=== PATIENT | male | born 1985 | race Hispanic/Latino ===

== ENCOUNTER 2017-12-23 11:12 | Inpatient (IN) | payer OTHER ==
[~2017-12-23] VITALS: Ht 175.3 cm; Wt 181.2 kg
[2017-12-23 11:34] LABS: BASOPHIL (%) 0.2 % (0-1); EOSINOPHIL (%) 0.9 % (0-5); EOSINOPHIL COUNT 0.2 K/uL (0-0.3); HEMATOCRIT 45.3 % (38.0-50.0); HEMOGLOBIN 16.3 G/DL (12.5-16.6); IMMATURE GRANULOCYTE (%) 1.2 % (0.0-0.7); LYMPHOCYTE (%) 13.3 % (15-42); LYMPHOCYTE COUNT 2.3 K/uL (1.0-2.8); MCH 31.7 PG (29.0-34.0); MCV 88.1 FL (86-99); MONOCYTE (%) 6.4 % (3-12); MONOCYTE COUNT 1.1 K/uL (0-0.8); NEUTROPHIL COUNT 13.7 K/uL (1.8-6.4); PLATELET COUNT 253 K/uL (156-360); RBC DIS.WIDTH-CV 12.8 % (11.8-14.6); RBC DIS.WIDTH-SD 41.7 % (39-53); RED BLOOD COUNT 5.14 M/uL (4.00-5.50); WHITE BLOOD COUNT 17.6 K/uL (4.1-10.2)
[2017-12-23 11:40] LABS: AMYLASE 53 IU/L (1-118); CHLORIDE 106 mEq/L (99-109); POTASSIUM 3.4 mEq/L (3.7-5.4); SODIUM 141 mEq/L (136-147)
[2017-12-23 11:42] LABS: GLUCOSE 125 mg/dL (70-99)
[2017-12-23 11:45] LABS: SERUM ETHYL ALCOHOL < 10 mg/dL
[2017-12-23 11:46] LABS: CREATININE 0.9 mg/dL (0.6-1.3); GFR ESTIMATE (CALCULATED) > 59 mL/min/ (58.99-99999)
[2017-12-23 11:47] LABS: UREA NITROGEN (BUN) 17 mg/dL (9-23)
[2017-12-23 11:49] LABS: LIPASE 16 U/L (1.0-51.0)
[2017-12-23 13:30] LABS: APPEARANCE CLEAR ((CLEAR)); BILIRUBIN NEGATIVE; BLOOD NEGATIVE; COLOR YELLOW ((YELLOW)); GLUCOSE (STRIP) NEGATIVE; KETONES NEGATIVE; LEUKOCYTES NEGATIVE; NITRITE NEGATIVE; PROTEIN (STRIP) NEGATIVE; SPECIFIC GRAVITY 1.032 (1.000-1.030); UCUL ADDED? NO; UROBILINOGEN 0.2 MG/DL (0.2-1.0)
[2017-12-23 13:52] LABS: AMPHETAMINE NEGATIVE (500 ng/mL); BARBITURATES NEGATIVE (200 ng/mL); BENZODIAZEPINES NEGATIVE (150 ng/mL); BUPRENORPHINE NEGATIVE (10 ng/mL); COCAINE NEGATIVE (150 ng/mL); METHADONE NEGATIVE (200 ng/mL); METHAMPHETAMINE NEGATIVE (500 ng/mL); OPIATES (MORPHINE) PRESUMPTIVE POSITIVE (100 ng/mL); OXYCODONE NEGATIVE (100 ng/mL); PHENCYCLIDINE NEGATIVE (25 ng/mL); PROPOXYPHENE NEGATIVE (300 ng/mL); THC CANNABINOIDS NEGATIVE (50 ng/mL); TRICYCLIC ANTIDEPRESSANTS NEGATIVE (300 ng/mL)
[2017-12-23 18:10] VITALS: BP 145/76
[2017-12-23 19:34] VITALS: BP 137/76
[2017-12-23 23:51] VITALS: BP 120/61
[2017-12-24 04:07] VITALS: BP 123/64
[2017-12-24 08:03] VITALS: BP 123/63
[2017-12-24 16:34] VITALS: BP 122/68
[2017-12-24 20:08] VITALS: BP 131/68
[2017-12-24 23:28] VITALS: BP 129/67
[2017-12-25 03:47] VITALS: BP 126/58
[2017-12-25 06:35] LABS: HEMATOCRIT 34.6 % (38.0-50.0); MCV 89.9 FL (86-99)
[2017-12-25 06:59] LABS: CHLORIDE 101 MEQ/L (99-109); CREATININE 0.9 MG/DL (0.6-1.3); GFR ESTIMATE (CALCULATED) > 59 mL/min/ (58.99-99999); GLUCOSE 126 mg/dL (70-99); SODIUM 137 MEQ/L (136-147); UREA NITROGEN (BUN) 16 mg/dL (9-23)
[2017-12-25 07:00] LABS: POTASSIUM 4.2 MEQ/L (3.7-5.4)
[2017-12-25 07:16] VITALS: BP 124/73
[2017-12-25 16:00] VITALS: BP 131/72
[2017-12-26 02:03] VITALS: BP 110/78
[2017-12-26 06:22] LABS: HEMATOCRIT 33.7 % (38.0-50.0); HEMOGLOBIN 11.5 G/DL (12.5-16.6); MCV 89.9 FL (86-99)
[2017-12-26 07:54] VITALS: BP 119/66
[2017-12-26 16:40] VITALS: BP 125/68
[2017-12-26 23:20] VITALS: BP 118/58
[2017-12-27 07:29] VITALS: BP 132/81
[2017-12-27] MEDS ORDERED: OXYCODONE HCL5 MG PO (08:31)
[2017-12-27 15:08] VITALS: BP 127/71
[2017-12-27] MEDS ORDERED: ASPIRIN81 M2 PO (17:51)
[2017-12-27] MEDS ORDERED: MIRALAX17 GM PO (17:52)
[2017-12-27] MEDS ORDERED: MULTI-VITAMIN-1 EACH PO (17:53)
[2017-12-27] MEDS ORDERED: STOOL SOFTENER100 MG PO (17:54)
[2017-12-27] MEDS ORDERED: ACETAMINOPHEN325 M3 PO (17:55)
== END 2017-12-27 17:20 | DRG 481 ==
LOC: TRA 11:12 → EDOF 14:56 → 3EAST 14:56 → ENRESERV 16:20 → 3EAST 17:51
PROVIDERS: Emergency Medicine; Orthopaedic Surgery
PROC: 0QS806Z Reposition Right Femoral Shaft with Intramedullary Internal Fixation Device, Open Approach (ICD-10-PCS; principal; 2017-12-24)
DX: S72.351A Displaced comminuted fracture of shaft of right femur, initial encounter for closed fracture (principal); W17.89XA Other fall from one level to another, initial encounter; Y93.H2 Activity, gardening and landscaping; Y92.74 Orchard as the place of occurrence of the external cause; Y99.0 Civilian activity done for income or pay; E66.9 Obesity, unspecified; Z68.43 Body mass index [BMI] 50.0-59.9, adult
CPT/HCPCS: 70450; 71260; 72125; 72129; 72132; 72170; 73552; 74177; 76000; 80048; 81003; 82150; 83690; 84999; 85014; 85018; 85025; 86850; 86900; 86901; 93005; 94799; 99281; 99284; C1713; G0480; J0131; J0330; J0690; J1100; J1170; J2250; J2405; J2710; J2765; J3010; J7120; J7643

== ENCOUNTER 2017-12-27 15:56 | Inpatient (IN) | payer OTHER ==
[~2017-12-27 15:56] MED LIST: OXYCODONE HCL5 MG PO
[2017-12-27 17:37] VITALS: BP 120/61
[2017-12-27] MEDS ORDERED: ASPIRIN81 M2 PO (17:51)
[2017-12-27] MEDS ORDERED: MIRALAX17 GM PO (17:52)
[2017-12-27] MEDS ORDERED: MULTI-VITAMIN-1 EACH PO (17:53)
[2017-12-27] MEDS ORDERED: STOOL SOFTENER100 MG PO (17:54)
[2017-12-27] MEDS ORDERED: ACETAMINOPHEN325 M3 PO (17:55)
[2017-12-28 00:21] VITALS: BP 120/66
[2017-12-28 04:17] VITALS: BP 120/50
[2017-12-28 07:03] LABS: HEMATOCRIT 35.6 % (38.0-50.0); HEMOGLOBIN 12.2 G/DL (12.5-16.6); MCH 30.7 PG (29.0-34.0); MCHC 34.3 G/DL (30.0-36.0); MCV 89.4 FL (86-99); NRBC (%) 0.2 /100 WBC (0-0); RBC DIS.WIDTH-CV 12.6 % (11.8-14.6); RBC DIS.WIDTH-SD 41.1 % (39-53); WHITE BLOOD COUNT 11.5 K/uL (4.1-10.2)
[2017-12-28 07:04] LABS: PLATELET COUNT 393 K/uL (156-360); RED BLOOD COUNT 3.98 M/uL (4.00-5.50)
[2017-12-28 07:07] LABS: ALBUMIN 4.1 G/DL (3.2-4.8); ALKALINE PHOSPHATASE 78 IU/L (3-129); ALT (GPT) 150 IU/L (3-49); AST (GOT) 80 IU/L (2-34); CHLORIDE 98 MEQ/L (99-109); CREATININE 0.9 MG/DL (0.6-1.3); GFR ESTIMATE (CALCULATED) > 59 mL/min/ (58.99-99999); GLUCOSE 123 mg/dL (70-99); POTASSIUM 3.9 MEQ/L (3.7-5.4); SODIUM 137 MEQ/L (136-147); TOTAL BILIRUBIN 1.4 MG/DL (0.0-1.0); TOTAL PROTEIN 6.6 G/DL (6.4-8.3); UREA NITROGEN (BUN) 16 mg/dL (9-23)
[2017-12-28 15:13] VITALS: BP 132/73
[2017-12-29 04:32] VITALS: BP 118/55
[2017-12-29 15:02] VITALS: BP 137/63
[2017-12-29 15:03] VITALS: BP 137/63
[2017-12-30 05:24] VITALS: BP 129/62
[2017-12-30 16:24] VITALS: BP 121/69
[2017-12-31 04:21] VITALS: BP 120/72
[2017-12-31 15:16] VITALS: BP 119/72
[2018-01-01 03:58] VITALS: BP 125/62
[2018-01-01 15:15] VITALS: BP 120/65
[2018-01-02 06:15] VITALS: BP 118/62
[2018-01-02 15:55] VITALS: BP 116/66
[2018-01-03 05:13] VITALS: BP 114/71
[2018-01-03] MEDS ORDERED: FAMOTIDINE20 MG PO (12:59)
[2018-01-03] MEDS ORDERED: MULTI-VITAMIN-1 EACH PO (12:59)
[2018-01-03] MEDS ORDERED: ASPIRIN EC325 MG PO (12:59)
[2018-01-03 15:23] VITALS: BP 123/70
[2018-01-04 05:29] VITALS: BP 120/59
[2018-01-04 06:53] LABS: HEMOGLOBIN 11.6 G/DL (12.5-16.6); MCH 29.9 PG (29.0-34.0); MCHC 33.1 G/DL (30.0-36.0); MCV 90.2 FL (86-99); PLATELET COUNT 397 K/uL (156-360); RBC DIS.WIDTH-CV 13.3 % (11.8-14.6); RBC DIS.WIDTH-SD 43.1 % (39-53); RED BLOOD COUNT 3.88 M/uL (4.00-5.50); WHITE BLOOD COUNT 8.5 K/uL (4.1-10.2)
[2018-01-04 07:19] LABS: ALBUMIN 3.9 G/DL (3.2-4.8); ALT (GPT) 137 IU/L (3-49); AST (GOT) 76 IU/L (2-34); CHLORIDE 102 MEQ/L (99-109); CREATININE 0.9 MG/DL (0.6-1.3); GFR ESTIMATE (CALCULATED) > 59 mL/min/ (58.99-99999); GLUCOSE 106 mg/dL (70-99); POTASSIUM 4.3 MEQ/L (3.7-5.4); SODIUM 138 MEQ/L (136-147); TOTAL BILIRUBIN 1.2 MG/DL (0.0-1.0); TOTAL PROTEIN 6.4 G/DL (6.4-8.3); UREA NITROGEN (BUN) 18 mg/dL (9-23)
[2018-01-04 07:21] LABS: ALKALINE PHOSPHATASE 110 IU/L (3-129)
== END 2018-01-04 13:10 | disposition home or self-care (01) | DRG 560 ==
LOC: 3WEST 15:56 → ENPENDDIS 01-05
PROVIDERS: Physical Medicine & Rehabilitation Pain Medicine
PROC: F07M0ZZ Range of Motion and Joint Mobility Treatment of Musculoskeletal System - Whole Body (ICD-10-PCS; principal; 2017-12-27)
DX: S72.351D Displaced comminuted fracture of shaft of right femur, subsequent encounter for closed fracture with routine healing (principal); R26.9 Unspecified abnormalities of gait and mobility; E83.51 Hypocalcemia; Z98.890 Other specified postprocedural states; D62 Acute posthemorrhagic anemia; D72.829 Elevated white blood cell count, unspecified; R79.89 Other specified abnormal findings of blood chemistry; W17.89XD Other fall from one level to another, subsequent encounter
CPT/HCPCS: 80053; 85027; 97110 GO; 97530 GP